=== PATIENT | male | born 1985 | race Caucasian/White ===

== ENCOUNTER 2018-09-22 12:09 | Outpatient (CLI) | payer MEDICAID ==
[~2018-09-22] VITALS: Ht 172.7 cm; Wt 72.6 kg
[~2018-09-22 12:09] MED LIST: CT SWABBABLE VALVE TRANS SET 1 EA INFUS.SET MC ONE; IOHEXOL-350 100 ML VIAL IV ONE; IV NS 0.9% 250 ML IV ONE
--- NOTE | 2018-09-22 12:44 | NUR ---
ASSOCIATE BROKER SPOKE BY PHONE W/ DR. EPSTEIN AND DR. STANLEY REGARDING PT HAS ALERGIES TO SHELFISH AND IODINE, BOTH MDS ADVISED NO NEW ORDERS AND TO DO THE SCAN AND MONITOR PT FOR ALLERGIC REACTION. NOTIFIED EMS TRANSPORTING STAFF REGARDING THE INFORMATION. PT AOX4 CTA COMPLETE PT MOVED BACK TO [facility] UNDER STABLE CONDITION
[2018-09-22] MEDS ORDERED: METOPROLOL TARTRATE INJ 5 MG/5 ML AMPUL IVP ONE (13:00)
[2018-09-22] MEDS ORDERED: NITROGLYCERIN 0.4 MG/TAB BOTTLE SL ONE (13:00)
[2018-09-22] MEDS ORDERED: IV NS 0.9% 500 ML IV ONE (13:00)
== END 2018-09-22 23:59 | disposition home or self-care (01) ==
LOC: CT 12:09
PROVIDERS: ATTEND Internal Medicine Cardiovascular Disease
DX: J90 Pleural effusion, not elsewhere classified (principal); J98.11 Atelectasis; M47.814 Spondylosis without myelopathy or radiculopathy, thoracic region
CPT/HCPCS: 75574; J7050; Q9967